=== PATIENT | male | born 1955 | race Caucasian/White ===

== ENCOUNTER → 2023-02-10 10:45 | Outpatient (CLI) | payer MEDICARE, SELFPAY ==
--- NOTE | ~2023-02-10 | XR_ITS ---
EXAM: XR shoulder RT min 2V DATE: 02/10/2023 11:15 HISTORY: M25.511 - Pain in right shoulder . COMPARISON: None available. FINDINGS: Partially visualized sternotomy wires, the superior wire is fractured. Normal mineralizatio n. No fracture or dislocation. No lytic or blastic lesion. Moderate AC joint and mild glenohumeral gary int degenerative change. No erosion or periosteal change. Soft tissues within normal limits. IMPRESSION: Polyarticular right shoulder osteoarthritis. Reviewed, dictated and finalized at location K.
== END ==
PROVIDERS: PCP Family Medicine Adolescent Medicine; Visit Provider Family Medicine Adolescent Medicine
DX: M19.011 Primary osteoarthritis, right shoulder (principal)
CPT/HCPCS: 73030

== ENCOUNTER 2024-10-03 14:18 | Outpatient (CLI) | payer MEDICARE, SELFPAY ==
--- NOTE | ~2024-10-03 | MR_ITS ---
EXAMINATION: MR lumbar spine wo con DATE: 10/03/2024 14:40 INDICATION: Low back pain, unspecified. TECHNIQUE: Magnetic resonance imaging (MRI) of the lumbar spine was performed without intravenous con trast. Sequences included sagittal T2-weighted FSE, sagittal T2-weighted FS FSE, sagittal T1-weighted FSE, and axial T2-weighted FSE. COMPARISON: None FINDINGS: There is 4 mm anterolisthesis of L4 on L5. There is 3 mm retrolisthesis of L1 on L2. There is mild chronic anterior wedging of T12 vertebral body. There is moderately decreased disc height at L1-L2, mildly decreased disc height at L2-L3, L3-L4, and L4 on L5, and severely decreased disc height at L5-S1. There is ligamentum flavum hypertrophy at the disc levels from L1-L2 through L4-L5. The di stal spinal cord signal intensity is normal. The conus medullaris is at T12-L1. The following disc le vels are specifically discussed: L1-L2: The disc is bulging. There is severe right and mild left facet joint osteoarthritis. There is mild bilateral neural foraminal stenosis. There is mild central canal stenosis. L2-L3: The disc is bulging. There is moderate right and mild left facet joint osteoarthritis. There i s mild bilateral neural foraminal stenosis. There is mild central canal stenosis. L3-L4: The disc is bulging and has an annular fissure. There is moderate bilateral facet joint osteoa rthritis. There is moderate bilateral neural foraminal stenosis. There is mild central canal stenosis . L4-L5: The disc is bulging and has an annular fissure. There is severe bilateral facet joint osteoart hritis. There is moderate right and mild left neural foraminal stenosis. There is moderate central ca nal stenosis. L5-S1: The disc is bulging and has an annular fissure. There is severe bilateral facet joint osteoart hritis. There is mild bilateral neural foraminal stenosis. There is mild central canal stenosis. IMPRESSION: 1. Severe lumbar spondylosis. Reviewed, dictated and finalized at location A. [employer]
== END 2024-10-03 14:19 | disposition home or self-care (01) ==
LOC: MICIMG 14:19
PROVIDERS: PCP Family Medicine Adolescent Medicine; Visit Provider Family Medicine Adolescent Medicine
DX: M43.06 Spondylolysis, lumbar region (principal); M54.31 Sciatica, right side; M54.32 Sciatica, left side
CPT/HCPCS: 72148